=== PATIENT | male | born 1940 | race Caucasian/White ===

== ENCOUNTER 2018-06-29 09:10 | Inpatient (IN) | payer OTHER, MEDICARE ==
--- NOTE | 2018-06-01 09:10 | HP ---
DATE OF ADMISSION: 06/29/2018 DATE OF DICTATION: 04/12/2018 BRIEF HISTORY: This is a 77-year-old gentleman who on last years routine physical examination was told he had a chronically incarcerated ventral hernia by his primary care physician, Dr. Avila. Patient has no complaints of pain, nausea, or vomiting. He is addressing this issue at this time prior to his repeat yearly physical examination. Patient has no bouts of nausea or vomiting or abdominal pain. He has had no change in bowel habits. Patient states the hernia may have gotten a little larger since last year. PAST MEDICAL HISTORY: No coronary artery disease, hypertension, or diabetes. PAST SURGICAL HISTORY: None. MEDICATIONS: None. ALLERGIES: None. SOCIAL HISTORY: Patient is in real estate. He does not smoke, nor drink. PHYSICAL EXAMINATION: Abdomen: Soft, nontender, nondistended. He has a chronically incarcerated hernia noted in the midline. The skin overlying the hernia is mildly thinned, but not bad. There is no erythema to the skin. The hernia is not reducible and the defects were not truly appreciated due to its chronically incarcerated nature. He has an upper midline diastasis from xiphoid umbilicus. IMPRESSION/PLAN: Chronically incarcerated ventral hernia: This is a 77-year-old gentleman who is mildly symptomatic from a chronically incarcerated ventral hernia. At this point, given the size of the hernia, I would actually recommend a repair. We have discussed the various surgical approaches and the surgical techniques between open, laparoscopic, and robotic. We have also talked about the placement of with and without mesh and where to place the mesh, as well. Patient, at the end of this conversation, has opted to proceed with an open repair with a retrorectus location. Given that face, he may require bilateral component separation at the time of surgery. The indications, alternatives, and complications of the procedure have been discussed, questions answered. We will plan to obtain written consent for bilateral component separation, repair of complex ventral hernia with mesh on the day of surgery. LUIS CASTANEDA M.D. [id number] cc: Dr. Avila
[2018-06-23 13:26] VITALS: BMI 30.1
[2018-06-29] MEDS ORDERED: TAMSULOSIN HCL 0.4 MG CAP ONE (09:46)
[2018-06-29] MEDS ORDERED: oxyCODONE HCL 5 MG TABLET PO PRN (10:22)
[2018-06-29] MEDS ORDERED: ONDANSETRON 4 MG/2 ML VIAL IVPUSH PRN (10:22)
[2018-06-29] MEDS ORDERED: ACETAMINOPHEN 325 MG TABLET (FP) PO PRN (10:22)
[2018-06-29] MEDS ORDERED: morphine SULFATE 4 MG/ML VIAL IVPB PRN (10:22)
[2018-06-29] MEDS ORDERED: D5-1/2NS+20 MEQ KCL - 20 MEQ/1,000 ML INFUS.BAG IV SCH (10:30)
[2018-06-29] MEDS ORDERED: BUPIVACAINE LIPOSOME/PF (EXPAREL) 266 MG/20 ML VIAL ONE (11:51)
[2018-06-29] MEDS ORDERED: MIDAZOLAM HCL 2 MG/2 ML SINGLE DOSE VIAL ONE ×2 (11:51→12:22)
[2018-06-29] MEDS ORDERED: BUPIVACAINE HCL/PF (5 MG/ML) 30 ML VIAL IJ ONE (11:51)
[2018-06-29] MEDS ORDERED: fentaNYL CITRATE 250 MCG/5 ML VIAL ONE (12:21)
[2018-06-29] MEDS ORDERED: PROPOFOL 20 ML ONE ×2 (12:22)
[2018-06-29] MEDS ORDERED: ROCURONIUM BROMIDE 50 MG/5 ML VIAL ONE ×2 (12:22)
[2018-06-29] MEDS ORDERED: LACTATED RINGERS SOLUTION 1,000 ML IV SCH (13:45)
[2018-06-29] MEDS ORDERED: NEOSTIGMINE METHYLSULFATE 0.5 MG/ML - 10 ML MDV ONE (14:00)
[2018-06-29] MEDS ORDERED: ONDANSETRON 4 MG/2 ML VIAL ONE (14:41)
--- NOTE | 2018-06-30 09:05 | OP ---
DATE OF OPERATION: 06/29/2018 PREOPERATIVE DIAGNOSIS: Chronically incarcerated complex ventral hernia. POSTOPERATIVE DIAGNOSIS: Chronically incarcerated complex ventral hernia. PROCEDURE PERFORMED: Open repair of complex chronically incarcerated ventral hernia with mesh, bilateral component separation. SURGEON: Cl Boone M.D. LEATHER PRODUCTION WORKER: Hayder Garcia D.O. ANESTHESIOLOGIST: Jackelyn Baker M.D. ANESTHESIA: General. ESTIMATED BLOOD LOSS: Minimal. SPECIMEN: Portion of omentum. INDICATIONS FOR PROCEDURE: This is a 77-year-old gentleman with a complex chronically incarcerated ventral hernia. It is causing him discomfort. He wishes to have this repaired. DESCRIPTION OF PROCEDURE: The patient was identified and appropriately positioned on the operating room table. After the placement of general anesthesia, the abdomen was prepped and draped in the usual sterile fashion with ChloraPrep. A midline incision was made and deepened through the subcutaneous tissue. The hernia was identified and dissected free from the subcutaneous tissue down to the level of the fascia. It was circumferentially isolated at the fascial neck. The fascia was freed for about 2 cm in all directions, along with the hernia. The defect was too large to close primarily and doing so with mesh would be an intra-abdominal placement. Therefore, he had a component separation. The right retrorectus space was entered by dividing the right posterior sheath. This dissection was done bluntly out to the perforating vessels and just medial to the perforating vessels. The fascia was scored in a north-south direction. The transversus was from the obliques and rectus with blunt and sharp dissection, and allowed the transversus to be mobilized medially. This was done approximately 5 inches above and below the defect. Once this was accomplished, a similar approach was used on the contralateral side. On the left side, the left retrorectus space was entered by dividing the posterior sheath. The space was developed bluntly out laterally and just medial to the perforating vessels, the fascia was scored at the transversus, allowing free mobilization of the transversus medially. Again, it was done approximately 4 to 5 inches above and below the defect. Next, the transversus was the reapproximated in the midline with a running locking 3-0 Maxon suture. The defect was measured, and a large 15 x 15 ProGrip was used for the operative repair, along with a 10 x 12 piece of Tony Bio Ovitex mesh. The 2 pieces of mesh were sewn together in a hybrid fashion. The Tony Bio was placed on the transversus side and the ProGrip laid against the retrorectus side. The mesh was anchored with interrupted AbsorbaTacks circumferentially. The mesh was irrigated. The operative field was noted to be hemostatic. Preliminary sponge and needle counts were done and correct. The fascia overlying the mesh was reapproximated in the midline with a running No. 1 PDS suture. The subcutaneous space was irrigated, and the skin closed with angie, followed by Dermabond. At the conclusion of this case, sponge counts were correct. The attestation and brief OP note hand written on the preprinted form. During this operation, on entering the abdomen, a portion of omentum was clearly choked off in the hernia. The omentum was then serially clamped, divided and tied with 3-0 Vicryl suture and reduced back through the defect and the sac itself closed with a 3-0 Maxon suture. Tracey NIEVES [id number] cc: Hayder Avila M.D. MTDD
[2018-06-30 09:22] VITALS: BP 111/55; PULSE 91; TEMP 97.6
[2018-06-30] MEDS ORDERED: PANTOPRAZOLE SODIUM 40 MG VIAL IVPUSH SCH (10:00)
[2018-06-30] MEDS ORDERED: ENOXAPARIN NA (PORCINE) 40 MG/0.4 ML DISP.SYRIN SQ SCH (10:00)
--- NOTE | 2018-06-30 12:39 | DS ---
DATE OF ADMISSION: 06/29/2018 DATE OF DISCHARGE: 06/30/2018 ADMITTING DIAGNOSIS: Ventral hernia. DISCHARGE DIAGNOSIS: Ventral hernia. BRIEF HISTORY: This is a 77-year-old male who was obese who presented to [facility] on June 29 for surgical management of a ventral hernia. He underwent repair of this hernia utilizing mesh and component separation with a myofascial release. Please reference Dr. Cl Boone's operative report. He was admitted to the hospital for this problem. Postoperatively he did well. He is tolerating a diet. He is ambulating. He is voiding. At the time of his discharge his abdomen is soft, nondistended. His incision is clean. There was a small amount of blood which has since stopped. He is nontender without sign of infection. He will go home with a new prescription for Percocet which he will take as needed for pain. He will resume his home vitamins. He is okay to shower but not lift anything more than 20 pounds. He is okay to walk and climb stairs. He will follow up with Dr. Boone in approximately 2 weeks' time to be evaluated for staple removal. DO ESTRELLA RUSSO/[id number]
--- NOTE | 2018-07-01 16:42 | PATH ---
Surgical Pathology Report Patient Name: ROQUE DELGADO Med. Rec. #: [id number] /Age/Gender: 1940 (Age: 77) / M Account: [id number] Location: [facility] MED-SURG Taken: 06/30/2018 Received: 06/29/2018 Reported: 07/01/2018 Physicians: Cl Boone Specimen(s) Received PORTION OF OMENTUM Clinical History Ventral hernia Final Diagnosis PORTION OF OMENTUM, EXCISION: BENIGN OMENTAL ADIPOSE TISSUE. Electronically Signed Doreen Story M.D. Gross Description Received in formalin labeled "portion of omentum" is a 7.5 x 4.5 x 1.0 cm portion of yellow, lobulated adipose tissue, consistent with a portion of omentum. [employer] sections are submitted in one cassette. /06/30/2018 saudi06/30/2018
== END 2018-06-30 12:30 | disposition home or self-care (01) | DRG 355 ==
LOC: FASU 09:10 → FM/S 10:22
PROVIDERS: ADMIT Surgery; ATTEND Surgery
PROC: 0WUF0JZ Supplement Abdominal Wall with Synthetic Substitute, Open Approach (ICD-10-PCS; principal; 2018-06-29 12:57)
DX: K43.6 Other and unspecified ventral hernia with obstruction, without gangrene (principal); E66.9 Obesity, unspecified; Z68.30 Body mass index [BMI] 30.0-30.9, adult
CPT/HCPCS: 88305-TC; 94760